=== PATIENT | male | born 1955 ===

== ENCOUNTER 2021-02-01 13:04 | Inpatient (IN) | payer MEDICARE, OTHER ==
[2021-02-01 14:18] LABS: CORONAVIRUS COVID-19 NAA POSITIVE (NEGATIVE)
[2021-02-01 16:27] LABS: ANION GAP 15.1 mEq/L (7-13); CHLORIDE,CL 99 mmol/L (98-107); SODIUM,NA 137 mmol/L (136-145)
[2021-02-01] MEDS ORDERED: Iopamidol 755 Mg/ML 100 ML Bottle IVPUSH ONE (16:45)
--- NOTE | 2021-02-01 17:26 | CT ---
PROCEDURE INFORMATION: Exam: CT Chest With Contrast; Diagnostic Exam date and time: 02/01/2021 4:57 PM Age: 65 years old Clinical indication: Shortness of breath; Additional info: Short of breath TECHNIQUE: Imaging protocol: Diagnostic computed tomography of the chest with contrast. Radiation optimization: All CT scans at this facility use at least one of these dose optimization techniques: automated exposure control; mA and/or kV adjustment per patient size (includes targeted exams where dose is matched to clinical indication); or iterative reconstruction. Contrast material: ISOVUE 370; Contrast volume: 80 ml; Contrast route: INTRAVENOUS (IV); COMPARISON: No relevant prior studies available. FINDINGS: Lungs: Severe diffuse emphysematous changes are present. There is diffuse peripheral ground-glass opacity in the posterior upper lobes and involving much of the lower lobes. The some middle lobe involvement as well.Mild non-specific patchy linear density at both bases. These changes could be inflammatory or could reflect atelectasis. Pleural spaces: No pleural effusion. No pneumothorax. Heart: The heart is not enlarged. Pulmonary arteries: Central pulmonary arteries are normal Aorta: The thoracic aorta is normal. No aneurysm. No dissection. Lymph nodes: No mediastinal adenopathy. 11 mm right hilar lymph node. Adrenal glands: The adrenal glands are normal. Bones/joints: No acute bony findings are identified. Soft tissues: There is no soft tissue abnormality seen. IMPRESSION: 1. Advanced emphysematous change. 2. Diffuse bilateral interstitial disease.Interstitial changes could reflect interstitial fibrosis, interstitial edema, or interstitial inflammatory/infectious change. If interstitial pneumonia is suspect viral etiologies and atypical etiologies require consideration. Bacterial etiologies cannot not excluded. Lack of cardiac enlargement and pleural effusion would weigh against a cardiogenic source. 3. Mild non-specific patchy linear density at both bases. These changes could be inflammatory or could reflect atelectasis. 4. Large right hilar lymph node is likely reactive. 5. Follow-up imaging studies recommended to assure complete resolution.
[2021-02-01] MEDS ORDERED: Piperacillin/Tazobactam 3.375 GM in Sodium Chloride 0.9% 100 ML IV ONE (17:42)
--- NOTE | 2021-02-01 17:49 | EDM.PDOC ---
Scribed by Monica Araya 02/01/[id number] [facility] ED HPI GENERAL MEDICAL PROBLEM - General Chief Complaint: Respiratory Problem Stated Complaint: TROUBLE BREATHNG / HEADACHE / CHILLS Time Seen by Provider: 02/01/21 15:30 Source of Information: Reports: Patient, RN, RN Notes Reviewed History Limitations: Reports: No Limitations - History of Present Illness INITIAL COMMENTS - FREE TEXT/NARRATIVE: Patient is a 65-year-old male with cough, weakness and shortness of breath for 1-1/2 weeks. Patient reports he has seemed to be getting worse. The patient's oxygen saturation was 87% on room air with oxygen his oxygen saturation was 93%. Onset: Gradual Duration: Getting Worse Location: Reports: Chest Severity: Severe Improves with: Reports: None Worsens with: Reports: None Associated Symptoms: Reports: No Other Symptoms - Related Data Home Meds: Home Meds Acetaminophen [Tylenol] 650 mg PO Q4H PRN 02/01/21 [History] Latanoprost 1 drop OP BEDTIME 02/01/21 [History] Past Medical History HEENT History: Reports: Glaucoma, Hard of Hearing Genitourinary History: Reports: Prostate Disorder Musculoskeletal History: Reports: Fracture - Past Surgical History HEENT Surgical History: Reports: None ED ROS GENERAL - Review of Systems Review Of Systems: Comprehensive ROS is negative, except as noted in HPI. ED EXAM, GENERAL - Physical Exam Exam: See Below Exam Limited By: No Limitations General Appearance: Alert, WD/WN, No Apparent Distress Eye Exam: Bilateral Eye: EOMI, Normal Inspection, PERRL Ears: Normal External Exam, Normal Canal, Hearing Grossly Normal, Normal TMs Nose: Normal Inspection, Normal Mucosa, No Blood Throat/Mouth: Normal Inspection, Normal Lips, Normal Teeth, Normal Gums, Normal Oropharynx, Normal Voice, No Airway Compromise Head: Atraumatic, Normocephalic Neck: Normal Inspection, Supple, Non-Tender, Full Range of Motion Respiratory/Chest: Other (decreased lung sounds). No: Rales, Rhonchi Cardiovascular: Normal Peripheral Pulses, Regular Rate, Rhythm, No Edema, No Gallop, No JVD, No Murmur, No Rub GI/Abdominal: Normal Bowel Sounds, Soft, Non-Tender, No Organomegaly, No Distention, No Abnormal Bruit, No Mass (Male) Exam: Deferred Rectal (Males) Exam: Deferred Back Exam: Normal Inspection, Full Range of Motion, NT Extremities: Normal Inspection, Normal Range of Motion, Non-Tender, Normal Capillary Refill, No Pedal Edema Neurological: Alert, Oriented, CN II-XII Intact, Normal Cognition, Normal Gait, Normal Reflexes, No Motor/Sensory Deficits Psychiatric: Normal Affect, Normal Mood Skin Exam: Warm, Dry, Intact, Normal Color, No Rash Lymphatic: No Adenopathy Course - Vital Signs Last Recorded V/S: Last Vital Signs Temp 103.5 F H 02/01/21 14:21 Pulse 78 02/01/21 14:21 Resp 20 02/01/21 14:21 BP 119/82 02/01/21 14:21 Pulse Ox 91 L 02/01/21 14:30 - Orders/Labs/Meds Orders: Active Orders 24 hr Category Date Time Status Admission Diagnosis [ADT] Urgent ADT 02/01/21 17:43 Ordered Admission Status [Patient Status] [ADT] Routine ADT 02/01/21 17:43 Ordered CULTURE BLOOD [BC] Stat Lab 02/01/21 15:53 Received Piperacillin/Tazobactam [Zosyn] 3.375 gm Med 02/01/21 17:42 Ordered Sodium Chloride 0.9% [Normal Saline AdvBag] 100 ml IV ONETIME Medication Orders Piperacillin Sod/Tazobactam (Sod 3.375 gm/ Sodium Chloride) 100 mls @ 200 mls/hr IV ONETIME ONE Stop: 02/01/21 18:11 Labs: Laboratory Tests 02/01/21 02/01/21 02/01/21 Range/Units 13:35 15:53 15:53 WBC 7.7 (5.0-10.0) 10^3/uL RBC 4.70 (4.6-6.2) 10^6/uL Hgb 13.7 L (14.0-18.0) g/dL Hct 41.0 (40.0-54.0) % MCV 87.2 (80-100) fL MCH 29.1 (27.0-34.0) pg MCHC 33.4 (33.0-35.0) g/dL Plt Count 232 (150-450) 10^3/uL Neut % (Auto) 85.9 H (42.2-75.2) % Lymph % (Auto) 6.7 L (20.5-50.1) % Geary % (Auto) 7.3 (2-8) % Eos % (Auto) 0.0 L (1.0-3.0) % Baso % (Auto) 0.1 (0.0-1.0) % D-Dimer, Quantitative (0-400) ng/mL Sodium 137 (136-145) mmol/L Potassium 4.1 (3.5-5.1) mmol/L Chloride 99 (98-107) mmol/L Carbon Dioxide 27 (21-32) mmol/L Anion Gap 15.1 H (7-13) mEq/L BUN 17 (7-18) mg/dL Creatinine 1.25 (0.70-1.30) mg/dL Est Cr Clr Drug Dosing TNP Estimated GFR (MDRD) 58 BUN/Creatinine Ratio 13.6 (No establ ref range) Glucose 114 H (70-99) mg/dL Lactic Acid (0.4-2.0) mmol/L Calcium 8.3 L (8.5-10.1) mg/dL Total Bilirubin 0.4 (0.2-1.0) mg/dL AST 42 H (15-37) U/L ALT 34 (16-63) U/L Alkaline Phosphatase 54 (46-116) U/L Total Protein 6.9 (6.4-8.2) g/dL Albumin 2.5 L (3.4-5.0) g/dL Globulin 4.4 Albumin/Globulin Ratio 0.57 Influenza Type A RNA Negative (NEGATIVE) Influenza Type B RNA Negative (NEGATIVE) SARS-CoV-2 RNA (JESSICA) Positive H (NEGATIVE) 02/01/21 02/01/21 Range/Units 15:53 15:53 WBC (5.0-10.0) 10^3/uL RBC (4.6-6.2) 10^6/uL Hgb (14.0-18.0) g/dL Hct (40.0-54.0) % MCV (80-100) fL MCH (27.0-34.0) pg MCHC (33.0-35.0) g/dL Plt Count (150-450) 10^3/uL Neut % (Auto) (42.2-75.2) % Lymph % (Auto) (20.5-50.1) % Geary % (Auto) (2-8) % Eos % (Auto) (1.0-3.0) % Baso % (Auto) (0.0-1.0) % D-Dimer, Quantitative 1570 H (0-400) ng/mL Sodium (136-145) mmol/L Potassium (3.5-5.1) mmol/L Chloride (98-107) mmol/L Carbon Dioxide (21-32) mmol/L Anion Gap (7-13) mEq/L BUN (7-18) mg/dL Creatinine (0.70-1.30) mg/dL Est Cr Clr Drug Dosing Estimated GFR (MDRD) BUN/Creatinine Ratio (No establ ref range) Glucose (70-99) mg/dL Lactic Acid 1.1 (0.4-2.0) mmol/L Calcium (8.5-10.1) mg/dL Total Bilirubin (0.2-1.0) mg/dL AST (15-37) U/L ALT (16-63) U/L Alkaline Phosphatase (46-116) U/L Total Protein (6.4-8.2) g/dL Albumin (3.4-5.0) g/dL Globulin Albumin/Globulin Ratio Influenza Type A RNA (NEGATIVE) Influenza Type B RNA (NEGATIVE) SARS-CoV-2 RNA (JESSICA) (NEGATIVE) Meds: Medications Generic Name Dose Route Start Last Admin Trade Name Freq PRN Reason Stop Dose Admin Piperacillin Sod/Tazobactam 100 mls @ 200 mls/hr 02/01/21 17:42 Sod 3.375 gm/ Sodium Chloride IV 02/01/21 18:11 ONETIME ONE Discontinued Medications Generic Name Dose Route Start Last Admin Trade Name Freq PRN Reason Stop Dose Admin Iopamidol 100 ml 02/01/21 16:45 02/01/21 17:03 Iopamidol 755 Mg/Ml 100 Ml Bottle IVPUSH 02/01/21 16:46 80 ml ONETIME ONE Administration Departure - Departure Time of Disposition: 17:47 Disposition: Admitted As Inpatient 66 Condition: Fair Clinical Impression: COVID-19, Hypoxia, Elevated d-dimer - Discharge Information *PRESCRIPTION DRUG MONITORING PROGRAM REVIEWED*: Not Applicable *COPY OF PRESCRIPTION DRUG MONITORING REPORT IN PATIENT PHILLIP: Not Applicable Care Plan Goals: Discussed the patient's history, examination, lab and CT results with Dr. Vargas. Dr. Vargas accepted the patient for continued evaluation and management as an inpatient at [facility] in [place]. The patient was given an IV dose of Zosyn prior to admission. Sepsis Event Note (ED) - Evaluation Sepsis Screening Result: No Definite Risk - Focused Exam Vital Signs: Vital Signs Temp Pulse Resp BP Pulse Ox 02/01/21 14:30 91 L 02/01/21 14:21 103.5 F H 78 20 119/82 87 L 02/01/21 13:24 102.8 F H 78 18 126/55 L 93 L - My Orders Last 24 Hours: My Active Orders 02/01/21 15:53 CULTURE BLOOD [BC] Stat 02/01/21 17:42 Piperacillin/Tazobactam [Zosyn] 3.375 gm Sodium Chloride 0.9% [Normal Saline AdvBag] 100 ml IV ONETIME 02/01/21 17:43 Admission Diagnosis [ADT] Urgent Admission Status [Patient Status] [ADT] Routine - Assessment/Plan Last 24 Hours: My Active Orders 02/01/21 15:53 CULTURE BLOOD [BC] Stat 02/01/21 17:42 Piperacillin/Tazobactam [Zosyn] 3.375 gm Sodium Chloride 0.9% [Normal Saline AdvBag] 100 ml IV ONETIME 02/01/21 17:43 Admission Diagnosis [ADT] Urgent Admission Status [Patient Status] [ADT] Routine I have read and agree with the documentation that has been completed regarding this visit. By signing this record, I attest that the documentation was completed in my physical presence and is an accurate record of the encounter.
[2021-02-01] MEDS ORDERED: Acetaminophen 325 MG Tab PO ONE ×2 (17:58→17:59)
--- NOTE | 2021-02-01 18:37 | PCM.HP ---
H&P History of Present Illness - General Date of Service: 02/01/21 Admit Problem/Dx: Admission Diagnosis/Problem Admission Diagnosis/Problem Hypoxia Source of Information: Patient, EMS Notes Reviewed, Old Records History Limitations: Reports: No Limitations - History of Present Illness Initial Comments - Free Text/Narative: Mr. Pascual is a 65-year-old male with past medical history of hearing impairment and glaucoma, he was seen for shortness of breath at the primary care clinic, the patient is unvaccinated for COVID-19, upon coming to ER his COVID-19 was tested and it was positive. The patient have this shortness of breath for 1 and half week and now it is getting worse for that reason he came to ER. In the ER the lab testing is done and his D-dimer was high, a CT of the chest was done with contrast, it showed advanced emphysematous change, diffuse bilateral in terstitial disease interstitial changes could reflect interstitial fibrosis interstitial edema or interstitial inflammatory/infectious change. If interstitial pneumonia is suspected viral etiologies and atypical etiologies require consideration of bacterial etiologies cannot excluded, mild nonspecific patchy linear density at both bases. These changes could be inflammatory or could reflect atelectasis, large right hilar lymph node is likely reactive. The patient will be admitted for COVID-19 infection with secondary pneumonia. Since the patient has the symptoms for more than 1 and half weeks, we will not start him on remdesivir, but will treat him with dexamethasone and antibiotics. We will check his D-dimer and fibrinogen on a regular basis. The patient will be admitted in Covid isolation room. Onset of Symptoms: Reports: Gradual Duration of Symptoms: Reports: Getting Worse Location: Reports: Chest Associated Symptoms: Reports: Cough, Shortness of Breath - Related Data Allergies/Adverse Reactions: Allergies Allergy/AdvReac Type Severity Reaction Status Date / Time No Known Allergies Allergy Verified 02/01/21 19:47 Home Medications: Home Meds Acetaminophen [Tylenol] 650 mg PO Q4H PRN 02/01/21 [History] Latanoprost 1 drop EYEBOTH BEDTIME 02/01/21 [History] Past Medical History HEENT History: Reports: Glaucoma, Hard of Hearing Genitourinary History: Reports: Prostate Disorder Musculoskeletal History: Reports: Fracture - Past Surgical History HEENT Surgical History: Reports: None H&P Review of Systems - Review of Systems: Review Of Systems: See Below General: Reports: Weakness. Denies: Fever HEENT: Reports: Ear Pain, Headaches, Other (has history of hearing impairment). Denies: Visual Changes Pulmonary: Reports: Shortness of Breath, Cough. Denies: Wheezing, Sputum Cardiovascular: Reports: Chest Pain. Denies: Lightheadedness Gastrointestinal: Reports: Abdominal Pain, Constipation, Hematemesis, Nausea. Denies: Vomiting Genitourinary: Denies: Dysuria, Burning, Urgency, Flank Pain Musculoskeletal: Reports: Shoulder Pain. Denies: Leg Pain, Muscle Stiffness Skin: Reports: Rash. Denies: Cyanosis, Jaundice, Bruising, Pruritis Psychiatric: Reports: Confusion, Anxiety Neurological: Denies: Confusion, Numbness, Tremors Exam - Exam Exam: See Below - Vital Signs Vital Signs: Last Vital Signs Temp 39.3 C H 02/01/21 18:01 Pulse 80 02/01/21 18:22 Resp 16 02/01/21 18:22 BP 119/82 02/01/21 14:21 Pulse Ox 95 02/01/21 18:22 - Exam Quality Assessment: Supplemental Oxygen, DVT Prophylaxis. No: Central Line/PICC, Urinary Catheter General: Alert, Oriented, Cooperative HEENT: Conjunctiva Clear, EOMI, Mucosa Moist & [place] Neck: Supple. No: Lymphadenopathy, JVD, Thyromegaly Lungs: Clear to Auscultation, Normal Respiratory Effort, Decreased Breath Sounds Cardiovascular: Regular Rate, Regular Rhythm GI/Abdominal Exam: Normal Bowel Sounds, Soft, Non-Tender, No Distention Rectal (Males) Exam: Deferred Back Exam: Normal Inspection Extremities: Normal Inspection, No Pedal Edema Neurological: Cranial Nerves Intact Neuro Extensive - Mental Status: Alert, Oriented x3, Normal Mood/Affect, Normal Cognition Neuro Extensive - Motor, Sensory, Reflexes: CN II-XII Intact, Normal Gait Psychiatric: Alert, Normal Affect, Normal Mood - Patient Data Lab Results Last 24 hrs: Laboratory Results - last 24 hr 02/01/21 02/01/21 02/01/21 Range/Units 13:35 15:53 15:53 WBC 7.7 (5.0-10.0) 10^3/uL RBC 4.70 (4.6-6.2) 10^6/uL Hgb 13.7 L (14.0-18.0) g/dL Hct 41.0 (40.0-54.0) % MCV 87.2 (80-100) fL MCH 29.1 (27.0-34.0) pg MCHC 33.4 (33.0-35.0) g/dL Plt Count 232 (150-450) 10^3/uL Neut % (Auto) 85.9 H (42.2-75.2) % Lymph % (Auto) 6.7 L (20.5-50.1) % Banks % (Auto) 7.3 (2-8) % Eos % (Auto) 0.0 L (1.0-3.0) % Baso % (Auto) 0.1 (0.0-1.0) % D-Dimer, Quantitative (0-400) ng/mL Sodium 137 (136-145) mmol/L Potassium 4.1 (3.5-5.1) mmol/L Chloride 99 (98-107) mmol/L Carbon Dioxide 27 (21-32) mmol/L Anion Gap 15.1 H (7-13) mEq/L BUN 17 (7-18) mg/dL Creatinine 1.25 (0.70-1.30) mg/dL Est Cr Clr Drug Dosing TNP Estimated GFR (MDRD) 58 BUN/Creatinine Ratio 13.6 (No establ ref range) Glucose 114 H (70-99) mg/dL Lactic Acid (0.4-2.0) mmol/L Calcium 8.3 L (8.5-10.1) mg/dL Total Bilirubin 0.4 (0.2-1.0) mg/dL AST 42 H (15-37) U/L ALT 34 (16-63) U/L Alkaline Phosphatase 54 (46-116) U/L Total Protein 6.9 (6.4-8.2) g/dL Albumin 2.5 L (3.4-5.0) g/dL Globulin 4.4 Albumin/Globulin Ratio 0.57 Influenza Type A RNA Negative (NEGATIVE) Influenza Type B RNA Negative (NEGATIVE) SARS-CoV-2 RNA (JESSICA) Positive H (NEGATIVE) 02/01/21 02/01/21 Range/Units 15:53 15:53 WBC (5.0-10.0) 10^3/uL RBC (4.6-6.2) 10^6/uL Hgb (14.0-18.0) g/dL Hct (40.0-54.0) % MCV (80-100) fL MCH (27.0-34.0) pg MCHC (33.0-35.0) g/dL Plt Count (150-450) 10^3/uL Neut % (Auto) (42.2-75.2) % Lymph % (Auto) (20.5-50.1) % Banks % (Auto) (2-8) % Eos % (Auto) (1.0-3.0) % Baso % (Auto) (0.0-1.0) % D-Dimer, Quantitative 1570 H (0-400) ng/mL Sodium (136-145) mmol/L Potassium (3.5-5.1) mmol/L Chloride (98-107) mmol/L Carbon Dioxide (21-32) mmol/L Anion Gap (7-13) mEq/L BUN (7-18) mg/dL Creatinine (0.70-1.30) mg/dL Est Cr Clr Drug Dosing Estimated GFR (MDRD) BUN/Creatinine Ratio (No establ ref range) Glucose (70-99) mg/dL Lactic Acid 1.1 (0.4-2.0) mmol/L Calcium (8.5-10.1) mg/dL Total Bilirubin (0.2-1.0) mg/dL AST (15-37) U/L ALT (16-63) U/L Alkaline Phosphatase (46-116) U/L Total Protein (6.4-8.2) g/dL Albumin (3.4-5.0) g/dL Globulin Albumin/Globulin Ratio Influenza Type A RNA (NEGATIVE) Influenza Type B RNA (NEGATIVE) SARS-CoV-2 RNA (JESSICA) (NEGATIVE) Result Diagrams: 02/02/21 05:55 02/02/21 05:55 - Problem List (1) COVID-19 SNOMED Code(s): 656149356 ICD Code: U07.1 - COVID-19 Status: Acute Current Visit: No (2) Elevated d-dimer SNOMED Code(s): 949089721 ICD Code: R79.89 - OTHER SPECIFIED ABNORMAL FINDINGS OF BLOOD CHEMISTRY Status: Acute Current Visit: No (3) Hypoxia SNOMED Code(s): 904647975 ICD Code: R09.02 - HYPOXEMIA Status: Acute Current Visit: No Problem List Initiated/Reviewed/Updated: Yes Orders Last 24hrs: Active Orders 24 hr Category Date Time Status Admission Diagnosis [ADT] Urgent ADT 02/01/21 17:43 Ordered Admission Status [Patient Status] [ADT] Routine ADT 02/01/21 17:43 Active CULTURE BLOOD [BC] Stat Lab 02/01/21 15:53 Received Assessment/Plan Comment:: Mr. Pascual is a 65-year-old male who is unvaccinated for COVID-19, presented to ER with increasing shortness of breath and requiring oxygen supplement, will be admitted for COVID-19 associated bacterial pneumonia and hypoxia. 1 impression and plan: 1. COVID-19 infection with secondary bacterial infection. This is most likely now progressing because the patient has the symptoms for 1 and half week and he is getting worsening of the symptom in recent days, he was tested for COVID-19 and it turned out to be positive CT scan was done and it showed likely interstitial pneumonia or viral etiologies and atypical etiologies also under consideration bacterial etiologies cannot be excluded. We will admit him in Covid isolation room and will start him on dexamethasone 6 mg IV daily, We will also start him on Lovenox at 40 mg subcu daily. We will start him on Zosyn as well as azithromycin. We will continue him with nasal cannula oxygen and try to wean off as tolerated. I have discussed with patient about remdesivir and he does not want to have remdesivir. -We will check his LFTs and also D-dimer and fibrinogen daily. 2. Elevated D-dimer: The patient has elevated D-dimer and will start him on Lovenox 40 mg subq daily, will keep checking his D-dimer on a regular basis, if it keeps increasing then we will start him on high intensity heparin drip. 3. Acute hypoxia: This is most likely secondary to COVID-19 infection with possible secondary bacterial infection and will start him on dexamethasone, Zosyn and azithromycin. GI prophylaxis: We will start him on Protonix. DVT prophylaxis: We will continue Lovenox at 40 mg subq daily. CODE STATUS: The CODE STATUS discussed with patient and he wants to be full code.
[2021-02-01] MEDS ORDERED: Docusate Sodium 100 MG Cap PO PRN (19:17)
[2021-02-01] MEDS: Azithromycin 500 MG in Sodium Chloride 0.9% 250 ML IV SCH (20:14)
[2021-02-02] MEDS: Acetaminophen 325 MG Tab PO PRN ×3 (03:51→18:15)
[2021-02-02 06:48] LABS: ANION GAP 14.4 mEq/L (7-13)
[2021-02-02] MEDS: Enoxaparin 40 MG/0.4 ML Syringe SUBCUT SCH (09:20)
[2021-02-02] MEDS: Dexamethasone 4 MG/ML SDV IVPUSH SCH (09:21)
--- NOTE | 2021-02-02 12:58 | PCM.PN ---
- General Info Date of Service: 02/02/21 Admission Dx/Problem (Free Text): Admission Diagnosis/Problem Admission Diagnosis/Problem Hypoxia and Covid positive test Subjective Update: Pt was seen in rounds and he is now spiking temperature and still on oxygen, No nausea or vomiting. appetite is good. Functional Status: Reports: Tolerating Diet, Ambulating, Urinating - Review of Systems General: Reports: Fever, Weakness, Malaise, Appetite (accptable) HEENT: Reports: Sinus Congestion. Denies: Headaches, Sore Throat, Visual Changes Pulmonary: Reports: Shortness of Breath, Cough. Denies: Sputum, Wheezing Cardiovascular: Denies: Chest Pain, Edema, Lightheadedness Gastrointestinal: Reports: Diarrhea, Nausea. Denies: Abdominal Pain, Vomiting Genitourinary: Denies: Dysuria, Burning, Urgency, Flank Pain Musculoskeletal: Denies: Neck Pain, Leg Pain, Joint Pain Skin: Denies: Cyanosis, Jaundice, Bruising, Pruritis, Rash Neurological: Denies: Confusion, Numbness, Tremors Psychiatric: Denies: Anxiety - Patient Data Vitals - Most Recent: Last Vital Signs Temp 38.3 C H 02/02/21 12:22 Pulse 82 02/02/21 11:51 Resp 18 02/02/21 11:51 BP 105/72 02/02/21 11:51 Pulse Ox 94 L 02/02/21 11:51 Weight - Most Recent: 76.385 kg Lab Results Last 24 Hours: Laboratory Results - last 24 hr 02/01/21 02/01/21 02/01/21 Range/Units 13:35 15:53 15:53 WBC 7.7 (5.0-10.0) 10^3/uL RBC 4.70 (4.6-6.2) 10^6/uL Hgb 13.7 L (14.0-18.0) g/dL Hct 41.0 (40.0-54.0) % MCV 87.2 (80-100) fL MCH 29.1 (27.0-34.0) pg MCHC 33.4 (33.0-35.0) g/dL Plt Count 232 (150-450) 10^3/uL Neut % (Auto) 85.9 H (42.2-75.2) % Lymph % (Auto) 6.7 L (20.5-50.1) % [place] % (Auto) 7.3 (2-8) % Eos % (Auto) 0.0 L (1.0-3.0) % Baso % (Auto) 0.1 (0.0-1.0) % D-Dimer, Quantitative (0-400) ng/mL Sodium 137 (136-145) mmol/L Potassium 4.1 (3.5-5.1) mmol/L Chloride 99 (98-107) mmol/L Carbon Dioxide 27 (21-32) mmol/L Anion Gap 15.1 H (7-13) mEq/L BUN 17 (7-18) mg/dL Creatinine 1.25 (0.70-1.30) mg/dL Est Cr Clr Drug Dosing TNP Estimated GFR (MDRD) 58 BUN/Creatinine Ratio 13.6 (No establ ref range) Glucose 114 H (70-99) mg/dL Lactic Acid (0.4-2.0) mmol/L Calcium 8.3 L (8.5-10.1) mg/dL Total Bilirubin 0.4 (0.2-1.0) mg/dL AST 42 H (15-37) U/L ALT 34 (16-63) U/L Alkaline Phosphatase 54 (46-116) U/L Total Protein 6.9 (6.4-8.2) g/dL Albumin 2.5 L (3.4-5.0) g/dL Globulin 4.4 Albumin/Globulin Ratio 0.57 Influenza Type A RNA Negative (NEGATIVE) Influenza Type B RNA Negative (NEGATIVE) SARS-CoV-2 RNA (JESSICA) Positive H (NEGATIVE) 02/01/21 02/01/21 02/02/21 Range/Units 15:53 15:53 05:55 WBC 7.3 (5.0-10.0) 10^3/uL RBC 4.32 L (4.6-6.2) 10^6/uL Hgb 12.7 L (14.0-18.0) g/dL Hct 38.4 L (40.0-54.0) % MCV 88.9 (80-100) fL MCH 29.4 (27.0-34.0) pg MCHC 33.1 (33.0-35.0) g/dL Plt Count 245 (150-450) 10^3/uL Neut % (Auto) 84.7 H (42.2-75.2) % Lymph % (Auto) 8.3 L (20.5-50.1) % Sierra % (Auto) 6.9 (2-8) % Eos % (Auto) 0.0 L (1.0-3.0) % Baso % (Auto) 0.1 (0.0-1.0) % D-Dimer, Quantitative 1570 H (0-400) ng/mL Sodium (136-145) mmol/L Potassium (3.5-5.1) mmol/L Chloride (98-107) mmol/L Carbon Dioxide (21-32) mmol/L Anion Gap (7-13) mEq/L BUN (7-18) mg/dL Creatinine (0.70-1.30) mg/dL Est Cr Clr Drug Dosing Estimated GFR (MDRD) BUN/Creatinine Ratio (No establ ref range) Glucose (70-99) mg/dL Lactic Acid 1.1 (0.4-2.0) mmol/L Calcium (8.5-10.1) mg/dL Total Bilirubin (0.2-1.0) mg/dL AST (15-37) U/L ALT (16-63) U/L Alkaline Phosphatase (46-116) U/L Total Protein (6.4-8.2) g/dL Albumin (3.4-5.0) g/dL Globulin Albumin/Globulin Ratio Influenza Type A RNA (NEGATIVE) Influenza Type B RNA (NEGATIVE) SARS-CoV-2 RNA (JESSICA) (NEGATIVE) 02/02/21 02/02/21 Range/Units 05:55 05:55 WBC (5.0-10.0) 10^3/uL RBC (4.6-6.2) 10^6/uL Hgb (14.0-18.0) g/dL Hct (40.0-54.0) % MCV (80-100) fL MCH (27.0-34.0) pg MCHC (33.0-35.0) g/dL Plt Count (150-450) 10^3/uL Neut % (Auto) (42.2-75.2) % Lymph % (Auto) (20.5-50.1) % Sierra % (Auto) (2-8) % Eos % (Auto) (1.0-3.0) % Baso % (Auto) (0.0-1.0) % D-Dimer, Quantitative 1680 H (0-400) ng/mL Sodium 138 (136-145) mmol/L Potassium 4.4 (3.5-5.1) mmol/L Chloride 103 (98-107) mmol/L Carbon Dioxide 25 (21-32) mmol/L Anion Gap 14.4 H (7-13) mEq/L BUN 20 H (7-18) mg/dL Creatinine 1.31 H (0.70-1.30) mg/dL Est Cr Clr Drug Dosing 59.88 Estimated GFR (MDRD) 55 BUN/Creatinine Ratio 15.3 (No establ ref range) Glucose 112 H (70-99) mg/dL Lactic Acid (0.4-2.0) mmol/L Calcium 7.9 L (8.5-10.1) mg/dL Total Bilirubin 0.3 (0.2-1.0) mg/dL AST 48 H (15-37) U/L ALT 38 (16-63) U/L Alkaline Phosphatase 50 (46-116) U/L Total Protein 6.3 L (6.4-8.2) g/dL Albumin 2.2 L (3.4-5.0) g/dL Globulin 4.1 Albumin/Globulin Ratio 0.54 Influenza Type A RNA (NEGATIVE) Influenza Type B RNA (NEGATIVE) SARS-CoV-2 RNA (JESSICA) (NEGATIVE) Med Orders - Current: Current Medications Acetaminophen (Acetaminophen 325 Mg Tab) 650 mg PO Q6H PRN PRN Reason: Fever Last Admin: 02/02/21 12:22 Dose: 650 mg Documented by: Dexamethasone (Dexamethasone 4 Mg/Ml Sdv) 6 mg IVPUSH DAILY [facility] Last Admin: 02/02/21 09:21 Dose: 6 mg Documented by: Docusate Sodium (Docusate Sodium 100 Mg Cap) 100 mg PO DAILY PRN PRN Reason: Constipation Enoxaparin Sodium (Enoxaparin 40 Mg/0.4 Ml Syringe) 40 mg SUBCUT DAILY [facility] Last Admin: 02/02/21 09:20 Dose: 40 mg Documented by: Azithromycin 500 mg/ Sodium (Chloride) 250 mls @ 250 mls/hr IV Q24H [facility] Last Admin: 02/01/21 20:14 Dose: 250 mls/hr Documented by: Discontinued Medications Acetaminophen (Acetaminophen 325 Mg Tab) 650 mg PO NOW ONE Stop: 02/01/21 17:59 Last Admin: 02/01/21 18:01 Dose: 650 mg Documented by: Acetaminophen (Acetaminophen 325 Mg Tab) 650 mg PO NOW ONE Stop: 02/01/21 18:00 Piperacillin Sod/Tazobactam (Sod 3.375 gm/ Sodium Chloride) 100 mls @ 200 mls/hr IV ONETIME ONE Stop: 02/01/21 18:11 Last Admin: 02/01/21 17:52 Dose: 200 mls/hr Documented by: Iopamidol (Iopamidol 755 Mg/Ml 100 Ml Bottle) 100 ml IVPUSH ONETIME ONE Stop: 02/01/21 16:46 Last Admin: 02/01/21 17:03 Dose: 80 ml Documented by: - Exam Quality Assessment: Supplemental Oxygen, DVT Prophylaxis. No: Central Debbie e/PICC, Urine Catheter General: Alert, Oriented, Cooperative, No Acute Distress HEENT: Pupils Equal, Pupils Reactive, EOMI, Mucous Membr. Moist/[place] Neck: Supple, No JVD, No Thyromegaly Lungs: Clear to Auscultation, Normal Respiratory Effort, Decreased Breath Sounds GI/Abdominal Exam: Normal Bowel Sounds, Non-Tender, No Distention, No Mass. No: Guarding, Rigid (Male) Exam: Deferred Back Exam: Normal Inspection Extremities: Normal Inspection, No Pedal Edema Skin: Warm, Dry, Intact Neurological: No New Focal Deficit Psy/Mental Status: Alert, Normal Affect, Normal Mood - Patient Data Lab Results Last 24 hrs: Laboratory Results - last 24 hr 02/01/21 02/01/21 02/01/21 Range/Units 13:35 15:53 15:53 WBC 7.7 (5.0-10.0) 10^3/uL RBC 4.70 (4.6-6.2) 10^6/uL Hgb 13.7 L (14.0-18.0) g/dL Hct 41.0 (40.0-54.0) % MCV 87.2 (80-100) fL MCH 29.1 (27.0-34.0) pg MCHC 33.4 (33.0-35.0) g/dL Plt Count 232 (150-450) 10^3/uL Neut % (Auto) 85.9 H (42.2-75.2) % Lymph % (Auto) 6.7 L (20.5-50.1) % Sierra % (Auto) 7.3 (2-8) % Eos % (Auto) 0.0 L (1.0-3.0) % Baso % (Auto) 0.1 (0.0-1.0) % D-Dimer, Quantitative (0-400) ng/mL Sodium 137 (136-145) mmol/L Potassium 4.1 (3.5-5.1) mmol/L Chloride 99 (98-107) mmol/L Carbon Dioxide 27 (21-32) mmol/L Anion Gap 15.1 H (7-13) mEq/L BUN 17 (7-18) mg/dL Creatinine 1.25 (0.70-1.30) mg/dL Est Cr Clr Drug Dosing TNP Estimated GFR (MDRD) 58 BUN/Creatinine Ratio 13.6 (No establ ref range) Glucose 114 H (70-99) mg/dL Lactic Acid (0.4-2.0) mmol/L Calcium 8.3 L (8.5-10.1) mg/dL Total Bilirubin 0.4 (0.2-1.0) mg/dL AST 42 H (15-37) U/L ALT 34 (16-63) U/L Alkaline Phosphatase 54 (46-116) U/L Total Protein 6.9 (6.4-8.2) g/dL Albumin 2.5 L (3.4-5.0) g/dL Globulin 4.4 Albumin/Globulin Ratio 0.57 Influenza Type A RNA Negative (NEGATIVE) Influenza Type B RNA Negative (NEGATIVE) SARS-CoV-2 RNA (JESSICA) Positive H (NEGATIVE) 02/01/21 02/01/21 02/02/21 Range/Units 15:53 15:53 05:55 WBC 7.3 (5.0-10.0) 10^3/uL RBC 4.32 L (4.6-6.2) 10^6/uL Hgb 12.7 L (14.0-18.0) g/dL Hct 38.4 L (40.0-54.0) % MCV 88.9 (80-100) fL MCH 29.4 (27.0-34.0) pg MCHC 33.1 (33.0-35.0) g/dL Plt Count 245 (150-450) 10^3/uL Neut % (Auto) 84.7 H (42.2-75.2) % Lymph % (Auto) 8.3 L (20.5-50.1) % Sierra % (Auto) 6.9 (2-8) % Eos % (Auto) 0.0 L (1.0-3.0) % Baso % (Auto) 0.1 (0.0-1.0) % D-Dimer, Quantitative 1570 H (0-400) ng/mL Sodium (136-145) mmol/L Potassium (3.5-5.1) mmol/L Chloride (98-107) mmol/L Carbon Dioxide (21-32) mmol/L Anion Gap (7-13) mEq/L BUN (7-18) mg/dL Creatinine (0.70-1.30) mg/dL Est Cr Clr Drug Dosing Estimated GFR (MDRD) BUN/Creatinine Ratio (No establ ref range) Glucose (70-99) mg/dL Lactic Acid 1.1 (0.4-2.0) mmol/L Calcium (8.5-10.1) mg/dL Total Bilirubin (0.2-1.0) mg/dL AST (15-37) U/L ALT (16-63) U/L Alkaline Phosphatase (46-116) U/L Total Protein (6.4-8.2) g/dL Albumin (3.4-5.0) g/dL Globulin Albumin/Globulin Ratio Influenza Type A RNA (NEGATIVE) Influenza Type B RNA (NEGATIVE) SARS-CoV-2 RNA (JESSICA) (NEGATIVE) 02/02/21 02/02/21 Range/Units 05:55 05:55 WBC (5.0-10.0) 10^3/uL RBC (4.6-6.2) 10^6/uL Hgb (14.0-18.0) g/dL Hct (40.0-54.0) % MCV (80-100) fL MCH (27.0-34.0) pg MCHC (33.0-35.0) g/dL Plt Count (150-450) 10^3/uL Neut % (Auto) (42.2-75.2) % Lymph % (Auto) (20.5-50.1) % Sierra % (Auto) (2-8) % Eos % (Auto) (1.0-3.0) % Baso % (Auto) (0.0-1.0) % D-Dimer, Quantitative 1680 H (0-400) ng/mL Sodium 138 (136-145) mmol/L Potassium 4.4 (3.5-5.1) mmol/L Chloride 103 (98-107) mmol/L Carbon Dioxide 25 (21-32) mmol/L Anion Gap 14.4 H (7-13) mEq/L BUN 20 H (7-18) mg/dL Creatinine 1.31 H (0.70-1.30) mg/dL Est Cr Clr Drug Dosing 59.88 Estimated GFR (MDRD) 55 BUN/Creatinine Ratio 15.3 (No establ ref range) Glucose 112 H (70-99) mg/dL Lactic Acid (0.4-2.0) mmol/L Calcium 7.9 L (8.5-10.1) mg/dL Total Bilirubin 0.3 (0.2-1.0) mg/dL AST 48 H (15-37) U/L ALT 38 (16-63) U/L Alkaline Phosphatase 50 (46-116) U/L Total Protein 6.3 L (6.4-8.2) g/dL Albumin 2.2 L (3.4-5.0) g/dL Globulin 4.1 Albumin/Globulin Ratio 0.54 Influenza Type A RNA (NEGATIVE) Influenza Type B RNA (NEGATIVE) SARS-CoV-2 RNA (JESSICA) (NEGATIVE) Result Diagrams: 02/02/21 05:55 02/02/21 05:55 Sepsis Event Note - Evaluation Sepsis Screening Result: No Definite Risk - Focused Exam Vital Signs: Vital Signs Temp Temp Pulse Resp BP BP Pulse Ox 02/02/21 12:22 38.3 C H 02/02/21 11:51 38.3 C H 82 18 105/72 94 L 02/02/21 07:40 37.9 C 75 18 103/62 95 02/02/21 05:00 38.2 C H 02/02/21 03:55 38.2 C H 75 20 117/65 96 02/02/21 03:51 38.2 C H - Problem List & Annotations (1) COVID-19 SNOMED Code(s): 069797363 Code(s): U07.1 - COVID-19 Status: Acute Current Visit: No (2) Elevated d-dimer SNOMED Code(s): 424023765 Code(s): R79.89 - OTHER SPECIFIED ABNORMAL FINDINGS OF BLOOD CHEMISTRY Status: Acute Current Visit: No (3) Hypoxia SNOMED Code(s): 253312428 Code(s): R09.02 - HYPOXEMIA Status: Acute Current Visit: No - Problem List Review Problem List Initiated/Reviewed/Updated: Yes - My Orders Last 24 Hours: My Active Orders 02/01/21 Dinner Regular Diet [DIET] 02/01/21 18:56 Patient Status [ADT] Routine 02/01/21 19:17 Up With Assistance [RC] ASDIRECTED Docusate Sodium [Colace] 100 mg PO DAILY PRN DVT/VTE Prophylaxis Reflex [OM.PC] Routine 02/01/21 19:20 Antiembolic Devices [RC] 08,20 Oxygen Therapy [RC] CONTINUOUS Pulse Oximetry [RC] .PRN VTE/DVT Education [RC] PER UNIT ROUTINE 02/01/21 19:24 Vital Signs [RC] 00,04,08,12,16,20 Resuscitation Status Routine 02/01/21 19:25 Acetaminophen [TylenoL] 650 mg PO Q6H PRN 02/01/21 19:30 Azithromycin [Zithromax] 500 mg Sodium Chloride 0.9% [Normal Saline AdvBag] 250 ml IV Q24H 02/02/21 09:00 Enoxaparin [Lovenox] 40 mg SUBCUT DAILY dexAMETHasone [Decadron] 6 mg IVPUSH DAILY - Plan Plan:: Mr. Pascual is a 65-year-old male who is unvaccinated for COVID-19, presented to ER with increasing shortness of breath and requiring oxygen supplement, will be admitted for COVID-19 associated bacterial pneumonia and hypoxia. 1 impression and plan: 1. COVID-19 infection with secondary bacterial infection. This is most likely now progressing because the patient has the symptoms for 1 and half week and he is getting worsening of his symptoms in recent days, he was tested for COVID-19 on 02/01/21 and it turned out to be positive, CT scan was done and it showed likely interstitial pneumonia of viral etiologies or atypical etiologies also under consideration bacterial etiologies cannot be excluded. -He is now on Covid isolation room and will continue him on dexamethasone 6 mg IV daily, -will also continue him on Lovenox at 40 mg subq daily. -will start him on Ceftriaxone 1 gm IV daily, and continue azithromycin. and add Vancomycin - Will continue him with nasal cannula oxygen and try to wean off as tolerated. I have discussed with patient about remdesivir treatment for COVID and he does not want to have remdesivir. -We will check his LFTs and also D-dimer and fibrinogen daily. 2. Elevated D-dimer: The patient has elevated D-dimer and will start him on Lovenox 40 mg subq daily, will keep checking his D-dimer on a regular basis, if it keeps increasing then we will start him on high intensity heparin drip. 3. Acute hypoxia: This is most likely secondary to COVID-19 infection with po ssible secondary bacterial infection and will continue him on dexamethasone, Ceftriaxone and azithromycin. and add vancomycin GI prophylaxis: We will start him on Protonix. DVT prophylaxis: We will continue Lovenox at 40 mg subq daily. CODE STATUS: The CODE STATUS discussed with patient and he wants to be full code.
[2021-02-02] MEDS: cefTRIAXone 1 GM in Sodium Chloride 0.9% 50 ML IV SCH (17:41)
[2021-02-02] MEDS ORDERED: Sodium Chloride 0.9% 10 ML Syringe FLUSH PRN (20:19)
[2021-02-02] MEDS: Azithromycin 500 MG in Sodium Chloride 0.9% 250 ML IV SCH (20:20)
[2021-02-03] MEDS: Dexamethasone 4 MG/ML SDV IVPUSH SCH (10:03)
[2021-02-03] MEDS: Enoxaparin 40 MG/0.4 ML Syringe SUBCUT SCH (10:03)
[2021-02-03 10:47] LABS: CHLORIDE,CL 103 mmol/L (98-107); SODIUM,NA 140 mmol/L (136-145)
--- NOTE | 2021-02-03 13:45 | PCM.PN ---
- General Info Date of Service: 02/03/21 Admission Dx/Problem (Free Text): Admission Diagnosis/Problem Admission Diagnosis/Problem Hypoxia and Covid positive test Subjective Update: Pt was seen in rounds and he he did not spike a temperature today and he is on 1 L oxygen we will plan to send him home tomorrow with home oxygen, he denied nausea or vomiting. appetite is good. Functional Status: Reports: Pain Controlled, Tolerating Diet, Ambulating, Urinating - Review of Systems General: Reports: Weakness, Malaise, Appetite (good). Denies: Fever HEENT: Denies: Headaches, Sinus Congestion, Sore Throat, Visual Changes Pulmonary: Reports: Shortness of Breath. Denies: Cough, Sputum, Wheezing Cardiovascular: Denies: Chest Pain, Dyspnea on Exertion, Lightheadedness Gastrointestinal: Denies: Constipation, Nausea, Vomiting Genitourinary: Denies: Dysuria, Frequency, Burning, Urgency Musculoskeletal: Denies: Neck Pain, Leg Pain, Joint Pain Skin: Denies: Cyanosis, Jaundice, Diaphoresis, Bruising, Pruritis, Rash Neurological: Denies: Confusion, Numbness, Tremors Psychiatric: Denies: Confusion, Anxiety - Patient Data Vitals - Most Recent: Last Vital Signs Temp 37.7 C 02/03/21 12:00 Pulse 76 02/03/21 12:00 Resp 23 H 02/03/21 12:00 BP 104/65 02/03/21 12:00 Pulse Ox 94 L 02/03/21 12:00 Weight - Most Recent: 76.385 kg I&O - Last 24 Hours: Intake & Output 02/02/21 02/03/21 02/03/21 22:59 06:59 14:59 Intake Total 550 800 Balance 550 800 Lab Results Last 24 Hours: Laboratory Results - last 24 hr 02/03/21 02/03/21 Range/Units 09:30 09:30 D-Dimer, Quantitative 1490 H (0-400) ng/mL Sodium 140 (136-145) mmol/L Potassium 4.0 (3.5-5.1) mmol/L Chloride 103 (98-107) mmol/L Carbon Dioxide 25 (21-32) mmol/L Anion Gap 16.0 H (7-13) mEq/L BUN 17 (7-18) mg/dL Creatinine 1.13 (0.70-1.30) mg/dL Est Cr Clr Drug Dosing 69.41 mL/min Estimated GFR (MDRD) > 60 Glucose 155 H (70-99) mg/dL Calcium 8.2 L (8.5-10.1) mg/dL Phosphorus 2.6 (2.6-4.7) mg/dL Jayjay Results Last 24 Hours: Microbiology 02/01/21 15:53 Aerobic Blood Culture - Preliminary Blood - Arm, Left NO GROWTH AFTER 1 DAY Anaerobic Blood Culture - Preliminary NO GROWTH AFTER 1 DAY Med Orders - Current: Current Medications Acetaminophen (Acetaminophen 325 Mg Tab) 650 mg PO Q6H PRN PRN Reason: Fever Last Admin: 02/02/21 18:15 Dose: 650 mg Documented by: Dexamethasone (Dexamethasone 4 Mg/Ml Sdv) 6 mg IVPUSH DAILY [facility] Last Admin: 02/03/21 10:03 Dose: 6 mg Documented by: Docusate Sodium (Docusate Sodium 100 Mg Cap) 100 mg PO DAILY PRN PRN Reason: Constipation Enoxaparin Sodium (Enoxaparin 40 Mg/0.4 Ml Syringe) 40 mg SUBCUT DAILY [facility] Last Admin: 02/03/21 10:03 Dose: 40 mg Documented by: Azithromycin 500 mg/ Sodium (Chloride) 250 mls @ 250 mls/hr IV Q24H [facility] Last Infusion: 02/02/21 21:30 Dose: Infused Documented by: Vancomycin HCl 1.25 gm/ Sodium (Chloride) 250 mls @ 167 mls/hr IV Q12H [facility] Last Infusion: 02/03/21 04:13 Dose: Infused Documented by: Ceftriaxone Sodium 1 gm/ (Sodium Chloride) 50 mls @ 100 mls/hr IV Q24H [facility] Last Infusion: 02/02/21 18:17 Dose: Infused Documented by: Sodium Chloride (Sodium Chloride 0.9% 10 Ml Syringe) 10 ml FLUSH ASDIRECTED PRN PRN Reason: IV Use Last Admin: 02/03/21 02:21 Dose: 10 ml Documented by: Vancomycin HCl (Pharmacy To Dose - Vancomycin) 1 dose .XX ASDIRECTED [facility] Discontinued Medications Acetaminophen (Acetaminophen 325 Mg Tab) 650 mg PO NOW ONE Stop: 02/01/21 17:59 Last Admin: 02/01/21 18:01 Dose: 650 mg Documented by: Acetaminophen (Acetaminophen 325 Mg Tab) 650 mg PO NOW ONE Stop: 02/01/21 18:00 Piperacillin Sod/Tazobactam (Sod 3.375 gm/ Sodium Chloride) 100 mls @ 200 mls/hr IV ONETIME ONE Stop: 02/01/21 18:11 Last Admin: 02/01/21 17:52 Dose: 200 mls/hr Documented by: Iopamidol (Iopamidol 755 Mg/Ml 100 Ml Bottle) 100 ml IVPUSH ONETIME ONE Stop: 02/01/21 16:46 Last Admin: 02/01/21 17:03 Dose: 80 ml Documented by: - Exam Quality Assessment: Supplemental Oxygen. No: Central Line/PICC, Urine Catheter General: Alert, Oriented, Cooperative, No Acute Distress HEENT: Pupils Equal, Pupils Reactive, EOMI, Mucous Membr. Moist/[place] Neck: No JVD, No Thyromegaly Lungs: Clear to Auscultation, Normal Respiratory Effort Cardiovascular: Regular Rate, Regular Rhythm, No Murmurs GI/Abdominal Exam: Normal Bowel Sounds, Non-Tender, No Distention, No Mass (Male) Exam: Deferred Back Exam: Normal Inspection Extremities: Normal Inspection, No Pedal Edema Skin: Warm, Dry, Intact Neurological: No New Focal Deficit Psy/Mental Status: Alert, Normal Affect, Normal Mood - Patient Data Lab Results Last 24 hrs: Laboratory Results - last 24 hr 02/03/21 02/03/21 Range/Units 09:30 09:30 D-Dimer, Quantitative 1490 H (0-400) ng/mL Sodium 140 (136-145) mmol/L Potassium 4.0 (3.5-5.1) mmol/L Chloride 103 (98-107) mmol/L Carbon Dioxide 25 (21-32) mmol/L Anion Gap 16.0 H (7-13) mEq/L BUN 17 (7-18) mg/dL Creatinine 1.13 (0.70-1.30) mg/dL Est Cr Clr Drug Dosing 69.41 mL/min Estimated GFR (MDRD) > 60 Glucose 155 H (70-99) mg/dL Calcium 8.2 L (8.5-10.1) mg/dL Phosphorus 2.6 (2.6-4.7) mg/dL Result Diagrams: 02/02/21 05:55 02/03/21 09:30 Jayjay Results Last 24 hrs: Microbiology 02/01/21 15:53 Aerobic Blood Culture - Preliminary Blood - Arm, Left NO GROWTH AFTER 1 DAY Anaerobic Blood Culture - Preliminary NO GROWTH AFTER 1 DAY Sepsis Event Note - Evaluation Sepsis Screening Result: No Definite Risk - Focused Exam Vital Signs: Vital Signs Temp Pulse Resp BP BP Pulse Ox 02/03/21 12:00 37.7 C 76 23 H 104/65 94 L 02/03/21 08:00 37.1 C 75 23 H 101/62 94 L 02/03/21 02:28 37.1 C 88 24 H 112/66 93 L - Problem List & Annotations (1) COVID-19 SNOMED Code(s): 671191600 Code(s): U07.1 - COVID-19 Status: Acute Current Visit: No (2) Elevated d-dimer SNOMED Code(s): 826777757 Code(s): R79.89 - OTHER SPECIFIED ABNORMAL FINDINGS OF BLOOD CHEMISTRY Status: Acute Current Visit: No (3) Hypoxia SNOMED Code(s): 807130734 Code(s): R09.02 - HYPOXEMIA Status: Acute Current Visit: No - Problem List Review Problem List Initiated/Reviewed/Updated: Yes - My Orders Last 24 Hours: My Active Orders 02/02/21 13:00 Pharmacy to Dose - Vancomycin 1 dose .XX ASDIRECTED 02/02/21 14:00 Vancomycin 1.25 gm Sodium Chloride 0.9% [Normal Saline AdvBag] 250 ml IV Q12H 02/02/21 15:00 cefTRIAXone [Rocephin] 1 gm Sodium Chloride 0.9% [Normal Saline AdvBag] 50 ml IV Q24H 02/02/21 20:19 Sodium Chloride 0.9% [Saline Flush] 10 ml FLUSH ASDIRECTED PRN 02/03/21 09:17 Chest 1V Frontal [CR] Routine 02/04/21 13:30 VANCOMYCIN TROUGH [CHEM] Timed - Plan Plan:: Mr. Pascual is a 65-year-old male who is unvaccinated for COVID-19, presented to ER with increasing shortness of breath and requiring oxygen supplement, will be admitted for COVID-19 associated bacterial pneumonia and hypoxia. 1 impression and plan: 1. COVID-19 infection with secondary bacterial infection. This is most likely now progressing because the patient has the symptoms for 1 and half week and he is getting worsening of his symptoms in recent days, he was tested for COVID-19 on 02/01/21 and it turned out to be positive, CT scan was done and it showed likely interstitial pneumonia of viral etiologies or atypical etiologies also under consideration bacterial etiologies cannot be excluded. -He is now on Covid isolation room and will continue him on dexamethasone 6 mg IV daily, -will also continue him on Lovenox at 40 mg subq daily. -will start him on Ceftriaxone 1 gm IV daily, and continue azithromycin. and add Vancomycin - Will continue him with nasal cannula oxygen and try to wean off as tolerated. I have discussed with patient about remdesivir treatment for COVID and he does not want to have remdesivir. -We will check his LFTs and also D-dimer and fibrinogen daily. 2. Elevated D-dimer: The patient has elevated D-dimer and will start him on Lovenox 40 mg subq daily, will keep checking his D-dimer on a regular basis, if it keeps increasing then we will start him on high intensity heparin drip. 3. Acute hypoxia: This is most likely secondary to COVID-19 infection with possible secondary bacterial infection and will continue him on dexamethasone, Ceftriaxone and azithromycin. and add vancomycin GI prophylaxis: We will start him on Protonix. DVT prophylaxis: We will continue Lovenox at 40 mg subq daily. CODE STATUS: The CODE STATUS discussed with patient and he wants to be full code.
[2021-02-03] MEDS: cefTRIAXone 1 GM in Sodium Chloride 0.9% 50 ML IV SCH (16:04)
[2021-02-03] MEDS: Azithromycin 500 MG in Sodium Chloride 0.9% 250 ML IV SCH (20:10)
[2021-02-04 06:38] LABS: ANION GAP 15.4 mEq/L (7-13); CHLORIDE,CL 107 mmol/L (98-107); SODIUM,NA 143 mmol/L (136-145)
[2021-02-04] MEDS: Enoxaparin 40 MG/0.4 ML Syringe SUBCUT SCH (08:45)
[2021-02-04] MEDS: Dexamethasone 4 MG/ML SDV IVPUSH SCH (08:45)
--- NOTE | 2021-02-04 11:12 | PCM.DCSUM1 ---
Discharge Summary - Hospital Course Free Text/Narrative:: Mr. Pascual is a 65-year-old male who is unvaccinated for COVID-19, presented to ER with increasing shortness of breath and requiring supplemental oxygen and was admitted for COVID-19 associated bacterial pneumonia and hypoxia. After the admission he was offered that recommended treatment for Covid with remdesivir and dexamethasone as well as antibiotics. He agreed to take dexamethasone and antibiotics but did not want to take remdesivir, and he did not get remdesivir. His oxygen saturation is only 85% at rest on room air, patient requiring oxygen at 1 L/min at rest to keep his saturation above 90 and will need 3 to 4 L with activity. Diagnosis: Stroke: No - Discharge Data Discharge Date: 02/04/21 Discharge Disposition: Home, Self-Care 01 Condition: Good - Referral to Home Health Primary Care Physician: PCP None - Discharge Diagnosis/Problem(s) (1) COVID-19 SNOMED Code(s): 978722908 ICD Code: U07.1 - COVID-19 Status: Acute Current Visit: No (2) Elevated d-dimer SNOMED Code(s): 050923644 ICD Code: R79.89 - OTHER SPECIFIED ABNORMAL FINDINGS OF BLOOD CHEMISTRY Status: Acute Current Visit: No (3) Hypoxia SNOMED Code(s): 752393976 ICD Code: R09.02 - HYPOXEMIA Status: Acute Current Visit: No - Patient Instructions Diet: Usual Diet as Tolerated Activity: As Tolerated Showering/Bathing: May Shower Other/Special Instructions: The patient was admitted with Covid 19 pneumonia and acute hypoxia. He will be going home with home oxygen 1 L/min at rest and 3 to 4 L/min with activity. We will also continue dexamethasone 6 mg for another 6 days and will continue antibiotics Cefpodoxime 200 mg twice a day for 7 days. Is advised to follow-up with his PMD in a week time with labs. - Discharge Plan *PRESCRIPTION DRUG MONITORING PROGRAM REVIEWED*: Not Applicable *COPY OF PRESCRIPTION DRUG MONITORING REPORT IN PATIENT PHILLIP: Not Applicable Prescriptions/Med Rec: dexAMETHasone [Dexamethasone] 6 mg PO DAILY #21 tablet Cefpodoxime [Vantin] 200 mg PO BID #14 tablet Home Medications: Home Meds Acetaminophen [Tylenol] 650 mg PO Q4H PRN 02/01/21 [History] Latanoprost 1 drop EYEBOTH BEDTIME 02/01/21 [History] Cefpodoxime [Vantin] 200 mg PO BID #14 tablet 02/04/21 [Rx] dexAMETHasone [Dexamethasone] 6 mg PO DAILY #21 tablet 02/04/21 [Rx] Oxygen Therapy Mode: Nasal Cannula Referrals: PCP,None [Primary Care Provider] - - Discharge Summary/Plan Comment DC Time >30 min.: Yes Total # of Minutes for Discharge Time: Total time spent today in discharging this patient was greater than 30 minutes. - Patient Data Vitals - Most Recent: Last Vital Signs Temp 37.2 C 02/04/21 08:00 Pulse 86 02/04/21 08:00 Resp 20 02/04/21 08:00 BP 120/83 02/04/21 08:00 Pulse Ox 94 L 02/04/21 08:00 Weight - Most Recent: 76.385 kg I&O - Last 24 hours: Intake & Output 02/03/21 02/04/21 02/04/21 22:59 06:59 14:59 Intake Total 400 200 Balance 400 200 Lab Results - Last 24 hrs: Laboratory Results - last 24 hr 02/04/21 Range/Units 06:15 Sodium 143 (136-145) mmol/L Potassium 4.4 (3.5-5.1) mmol/L Chloride 107 (98-107) mmol/L Carbon Dioxide 25 (21-32) mmol/L Anion Gap 15.4 H (7-13) mEq/L BUN 20 H (7-18) mg/dL Creatinine 1.10 (0.70-1.30) mg/dL Est Cr Clr Drug Dosing 71.31 mL/min Estimated GFR (MDRD) > 60 Glucose 129 H (70-99) mg/dL Calcium 8.4 L (8.5-10.1) mg/dL JUDAH Results - Last 24 hrs: Microbiology 02/01/21 15:53 Aerobic Blood Culture - Preliminary Blood - Arm, Left NO GROWTH AFTER 2 DAYS Anaerobic Blood Culture - Preliminary NO GROWTH AFTER 2 DAYS Med Orders - Current: Current Medications Acetaminophen (Acetaminophen 325 Mg Tab) 650 mg PO Q6H PRN PRN Reason: Fever Last Admin: 02/02/21 18:15 Dose: 650 mg Documented by: Dexamethasone (Dexamethasone 4 Mg/Ml Sdv) 6 mg IVPUSH DAILY [facility] Last Admin: 02/04/21 08:45 Dose: 6 mg Documented by: Docusate Sodium (Docusate Sodium 100 Mg Cap) 100 mg PO DAILY PRN PRN Reason: Constipation Enoxaparin Sodium (Enoxaparin 40 Mg/0.4 Ml Syringe) 40 mg SUBCUT DAILY [facility] Last Admin: 02/04/21 08:45 Dose: 40 mg Documented by: Azithromycin 500 mg/ Sodium (Chloride) 250 mls @ 250 mls/hr IV Q24H [facility] Last Admin: 02/03/21 20:10 Dose: 250 mls/hr Documented by: Vancomycin HCl 1.25 gm/ Sodium (Chloride) 250 mls @ 167 mls/hr IV Q12H [facility] Last Admin: 02/04/21 01:07 Dose: 167 mls/hr Documented by: Ceftriaxone Sodium 1 gm/ (Sodium Chloride) 50 mls @ 100 mls/hr IV Q24H [facility] Last Infusion: 02/03/21 17:09 Dose: Infused Documented by: Sodium Chloride (Sodium Chloride 0.9% 10 Ml Syringe) 10 ml FLUSH ASDIRECTED PRN PRN Reason: IV Use Last Admin: 02/03/21 02:21 Dose: 10 ml Documented by: Vancomycin HCl (Pharmacy To Dose - Vancomycin) 1 dose .XX ASDIRECTED [facility] Discontinued Medications Acetaminophen (Acetaminophen 325 Mg Tab) 650 mg PO NOW ONE Stop: 02/01/21 17:59 Last Admin: 02/01/21 18:01 Dose: 650 mg Documented by: Acetaminophen (Acetaminophen 325 Mg Tab) 650 mg PO NOW ONE Stop: 02/01/21 18:00 Piperacillin Sod/Tazobactam (Sod 3.375 gm/ Sodium Chloride) 100 mls @ 200 mls/hr IV ONETIME ONE Stop: 02/01/21 18:11 Last Admin: 02/01/21 17:52 Dose: 200 mls/hr Documented by: Iopamidol (Iopamidol 755 Mg/Ml 100 Ml Bottle) 100 ml IVPUSH ONETIME ONE Stop: 02/01/21 16:46 Last Admin: 02/01/21 17:03 Dose: 80 ml Documented by:
[2021-02-04] MEDS ORDERED: Amoxicillin/Clavulanate K 875-125 MG Tab PO ONE (14:59)
--- NOTE | 2021-02-04 15:49 | CR ---
PROCEDURE INFORMATION: Exam: XR Chest Exam date and time: 02/03/2021 9:44 AM Age: 65 years old Clinical indication: Other: Hypoxia TECHNIQUE: Imaging protocol: XR of the chest. Views: 1 view. COMPARISON: CT Chest w Cont 02/01/2021 4:57 PM FINDINGS: Lungs: Mild bibasilar patchy airspace opacities, right greater than left, grossly similar to on the prior chest CT accounting for differences in imaging technique. Pleural spaces: No pneumothorax. Heart/Mediastinum: Unremarkable. Bones/joints: Unremarkable for patient's age. IMPRESSION: Mild bibasilar patchy airspace opacities, right greater than left, grossly similar to on the prior chest CT accounting for differences in imaging technique. Suggest follow-up imaging to document resolution, if clinically indicated.
== END 2021-02-04 15:00 | disposition home or self-care (01) | DRG 177 ==
LOC: DL.ED 13:04 → DL.MS 17:43
PROVIDERS: ADMIT Internal Medicine Nephrology; ATTEND Internal Medicine Nephrology
PROC: 3E0333Z Introduction of Anti-inflammatory into Peripheral Vein, Percutaneous Approach (ICD-10-PCS; principal; 2021-02-01)
DX: U07.1 COVID-19 (principal); J15.9 Unspecified bacterial pneumonia; Z79.899 Other long term (current) drug therapy; H91.90 Unspecified hearing loss, unspecified ear; N42.9 Disorder of prostate, unspecified; R79.89 Other specified abnormal findings of blood chemistry
CPT/HCPCS: 0240U; 36415; 71045; 71260; 80048; 80053; 80202; 83605; 84100; 85025; 85379; 87040; 99285-25; A9270-GY; J0456; J0696; J1100; J1650; J2543; J3370; J7050; Q9967